=== PATIENT | female | born 1970 | race Caucasian/White ===

== ENCOUNTER → 2018-03-12 06:50 | Outpatient (CLI) | payer OTHER, SELFPAY ==
--- NOTE | 2018-03-12 06:56 | NM_ITS ---
History and Indications: Chest pain, shortness of breath, palpitations and fatigue and family history Procedure: Patient received a 0.4 mg of intravenous Lexiscan, resting heart rate was 47 bpm resting blood pressure 129/79, with Lexiscan maximum heart rate achieved was 101 bpm which is less than 85% of the maximum predicted heart rate and a blood pressure was 142/82. With Lexiscan patient complained of shortness of breath, requiring intravenous Aminophyllin to reverse symptoms. Electrocardiogram: Resting electrocardiogram showed sinus bradycardia, with Lexiscan there is less than 1.[address] segment depression with line EKG. The EKG portion of the Lexiscan Myoview is nondiagnostic. Cardiac stress and resting SPECT images: Cardiac stress and resting SPECT images were obtained using technetium 99 Myoview 31.6 mCi stress and 10.2 mCi rest ,gated SPECT further analysis of segmental wall motion and calculation of the ejection fraction also done. Cardiac stress and resting SPECT images show mild fixed defect anteriorly with normal contractility on the gated SPECT is likely secondary to soft tissue attenuation, no reversible ischemia seen. Computer derived ejection fraction 63% with no regional wall motion abnormality, right ventricle is normal size and contractility. Conclusion: 1. The EKG portion of the Lexiscan Myoview is nondiagnostic. 2. No scintigraphic evidence of reversible ischemia seen, computer derived ejection fraction is 63% with no regional wall motion abnormality, right ventricle is normal size and contractility. 3. Normal Lexiscan Myoview study.
--- NOTE | 2018-03-12 08:55 | HMH.ITSHM ---
Current Home Medications as stated by this patient Samara Sandoval or termite control representative. [bisprolol]
== END ==
PROVIDERS: PCP Family Medicine; Visit Provider Internal Medicine
DX: R00.2 Palpitations (principal); K21.9 Gastro-esophageal reflux disease without esophagitis; R07.89 Other chest pain; R42 Dizziness and giddiness
CPT/HCPCS: 78452; 93017; A9502; J2785

== ENCOUNTER → 2019-01-20 09:02 | Outpatient (CLI) | payer OTHER, SELFPAY ==
--- NOTE | 2019-01-20 09:06 | MM_ITS ---
PROCEDURE: MM DIG SCREENING MAMM BI W/CAD Patient Age:48Y CLINICAL INDICATION: screening Routine screening. No hormones. No new complaints. Noncontributory family history. 48-year-old female. Lena menopausal COMPARISON: [facility] DIGITAL MAMM-SCREEN BILATERAL from 09/13/2010 TECHNIQUE: Standard CC and MLO images were obtained. R2 CAD reviewed. FINDINGS: A moderate breast density. Breast tissue most evident central breast and extending towards upper-outer quadrant in both breasts. Slight heterogeneous character and mild asymmetry is again seen bilaterally but no significant new findings but no dominant or discrete suspicious mass. The slight decrease density of breast tissue in the interval. Areas of minimal asymmetry appear similar, stable since previous available study 2010.--specifically subtle areas towards the superior left breast are unchanged and can be followed. Bilateral follow-up 1 year adequate and recommended IMPRESSION: Stable bilateral mammogram with no new areas of significant concern. BI-RAD Category: 2 Benign Finding(s) FOLLOW-UP: 1YR 1 Year Follow-up (A letter has been sent to the patient regarding results of the study.) Dictated by: Sunil Florence MD 01/22/2019 09:34 Electronically signed by Sunil Florence MD in [place] 01/22/2019 09:34
== END ==
PROVIDERS: PCP Family Medicine; Visit Provider Family Medicine
DX: Z12.31 Encounter for screening mammogram for malignant neoplasm of breast (principal)
CPT/HCPCS: 77067

== ENCOUNTER → 2019-02-22 12:12 | Outpatient (CLI) | payer OTHER, SELFPAY ==
--- NOTE | 2019-02-22 12:18 | XR_ITS ---
PROCEDURE: XR LUMBAR SPINE MIN 4V CLINICAL INDICATION: MIDLINE LOW BACK PAIN Midline low back pain COMPARISON: No exams were available for comparison FINDINGS: There is mild multilevel degenerative disc disease from L1-S1 with slight decrease in the disc space with endplate osteophytes noted with some posterior disc calcification suspected at L1-L2-L3-L4 and L4-5. Facet arthritic changes are present he at L5-S1 with bony hypertrophy of the facets. No fracture or dislocation. No bony destructive process. The SI joints have an unremarkable appearance. IMPRESSION: Degenerate disc disease with facet arthritic change Dictated by: Umair Rodriguez MD 02/22/2019 12:59 Electronically signed by Umair Rodriguez MD in [facility] 02/22/2019 12:59
--- NOTE | 2019-02-22 12:18 | XR_ITS ---
PROCEDURE: XR FOOT RT MIN 3V CLINICAL INDICATION: RT FOOT PAIN COMPARISON: No exams were available for comparison FINDINGS: No fracture or dislocation. No lytic or blastic change. There is normal mineralization. There are mild osteoarthritic changes at the tarsal metatarsal junction. Small calcaneal spur noted. There is a small area of bony exostosis involving the mid and inferior aspect of the calcaneus. Incidental calcification noted along the lower tibia anteriorly consistent with phleboliths. IMPRESSION: Mild degenerative changes Dictated by: Umair Rodriguez MD 02/22/2019 13:03 Electronically signed by Umair Rodriguez MD in [place] 02/22/2019 13:03
== END ==
PROVIDERS: PCP Family Medicine; Visit Provider Nurse Practitioner
DX: M79.671 Pain in right foot (principal); M54.5 Low back pain
CPT/HCPCS: 72110; 73630

== ENCOUNTER → 2019-08-02 11:02 | Outpatient (CLI) | payer OTHER, SELFPAY ==
--- NOTE | 2019-08-02 11:08 | XR_ITS ---
PROCEDURE: XR CHEST 2V CLINICAL HISTORY: BRONCHITIS, PLEURITIC CHEST PAIN COMPARISON: CXR CHEST(2 VIEWS-NOT PORTABLE) from 06/27/2015 FINDINGS: The cardiomediastinal silhouette and pulmonary vascularity are within normal limits. The lungs are clear without infiltrates, suspicious nodules, or pleural effusions. No acute bony abnormalities. IMPRESSION: No acute findings. Dictated by: Curt Corcoran 08/02/2019 12:18 Electronically signed by Curt Corcoran in [place] 08/02/2019 12:18
== END ==
PROVIDERS: PCP Family Medicine; Visit Provider Family Medicine
DX: R07.81 Pleurodynia (principal); J40 Bronchitis, not specified as acute or chronic
CPT/HCPCS: 71046

== ENCOUNTER → 2020-01-07 11:03 | Outpatient (CLI) | payer OTHER, SELFPAY ==
[2020-01-07 13:07] LABS: Basophils % 0.6 % (0.1-2.0); Eosinophils # 0.1 K/mm3 (0.0-0.4); Eosinophils % 1.9 % (0.1-12.0); Hemoglobin 13.9 g/dL (12.2-16.2); Lymphocytes # 1.3 K/mm3 (0.7-4.5); Lymphocytes % 24.8 % (10-50); Mean Corpuscular HGB Conc 33.2 g/dL (31.8-35.4); Mean Corpuscular Hemoglobin 30.9 pg (27.0-31.2); Mean Corpuscular Volume 93.1 fl (81-99); Mean Platelet Volume 7.1 fl (7.4-10.4); Monocytes # 0.3 K/mm3 (0.1-1.0); Monocytes % 5.6 % (1.7-9.3); Neutrophils # 3.4 K/mm3 (1.8-7.8); Platelet Count 282 K/mm3 (142-424); Red Blood Count 4.51 M/mm3 (4.20-5.40); Red Cell Distribution Width 12.7 % (11.5-17.5); White Blood Count 5.1 K/mm3 (4.8-10.8)
[2020-01-07 16:01] LABS: Strep Scrn Group A (Rapid) Negative (Negative)
[2020-01-08 15:00] LABS: Covid-19 Nasal PCR Sendout Lex Positive
== END ==
PROVIDERS: PCP Family Medicine; Visit Provider Nurse Practitioner
DX: Z20.828 Contact with and (suspected) exposure to other viral communicable diseases (principal); U07.1 COVID-19
CPT/HCPCS: 85025; 87430; U0004

== ENCOUNTER 2020-01-21 09:31 | Emergency (ER) | payer OTHER, SELFPAY ==
[2020-01-21 09:39] VITALS: BP 130/75; PULSE 72; RESP 16; TEMP 36.6; O2SAT 98; BMI 35.5
--- NOTE | 2020-01-21 09:45 | XR_ITS ---
PROCEDURE: XR FINGER RT MIN 2V CLINICAL INDICATION: INJURY COMPARISON: No exams were available for comparison FINDINGS: There is a comminuted transverse fracture through the distal shaft and terminal tuft the middle finger. There is mild diffuse soft tissue swelling around the middle and distal phalanx. Proximal and middle phalanx appear intact. IMPRESSION: Comminuted crush type fracture at the junction of the distal shaft and terminal tuft middle finger Dictated by: Dr. Lm Davies MD 01/21/2020 10:24 Dr. Lm Davies MD in [place] 01/21/2020 10:24
--- NOTE | 2020-01-21 10:19 | HMH.EDWNDL ---
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 Qualifiers: Fracture type: open Phalanx: distal Fracture alignment: displaced Qualified Code(s): S62.632K - Displaced fracture of distal phalanx of right middle finger, subsequent encounter for fracture with nonunion Fingernail avulsion, partial Qualifiers: Encounter type: initial encounter Qualified Code(s): S61.309A - Unspecified open wound of unspecified finger with damage to nail, initial encounter Disposition: Home, Self-Care Condition on Discharge: Good Instructions: DI for Finger Fracture Prescriptions: Hydrocod/Acet 5/325 mg [Linwood 5/325mg tablet] 1 tab PO Q4HP PRN #15 tab PRN Reason: Moderate To Severe Pain Prescription Printed Amoxicillin/Potassium Clav [Amox-Clav 875-125 mg Tablet] 1 tab PO BID #20 tab Prescription Printed Referrals: Suzie Lowe MD [Primary Care Provider] - Anthony Joe MD [Referring] - - Critical Care Critical Care Time: No Attestation: On 01/21/20, the high probability of a clinically significant, sudden or life threatening deterioration of the following system(s) required my full and direct attention, intervention and personal management. The time I documented below is in addition to time spent performing reported procedures but includes the following listed in this critical care notation. Medical Decision Making - Doug Inquiry Pt receiving controlled substance: Yes Doug was queried for this patient: No Risks and benefits of using a controlled substance: were discussed with pt by me Vital Signs: 01/21/20 09:39 Temperature 98 F Temperature Source Oral Pulse Rate [Radial] 72 Respiratory Rate 16 Blood Pressure [Right Arm] 130/75 Blood Pressure Mean [Right Arm] 93 Blood Pressure Position [Right Arm] Sitting 02 Sat by Pulse Oximetry 98 Oxygen Delivery Method Room Air Orders (Tests/Meds): ED MEDICATIONS Discontinued Medications Generic Name Dose Route Start Last Admin Trade Name Freq PRN Reason Stop Dose Admin Hydrocodone Bitart/Acetaminophen 1 tab 01/21/20 09:54 01/21/20 10:14 Linwood 10/325mg Tablet PO 01/21/20 09:55 1 tab ONCE ONE Administration Cefazolin Sodium 1 gm 01/21/20 10:47 Ancef 1gm Vial IM 01/21/20 10:48 ONCE ONE Protocol Tetanus/Reduced Diphtheria/Acell Pertussis 0.5 ml 01/21/20 09:54 01/21/20 10:12 Adacel Tdap 0.5ml Syringe IM 01/21/20 09:55 0.5 ml .ONCE ONE Administration - Radiology Data #1 Image(s): Hand Image Reviewed: Yes I reviewed the patient's radiology results, Yes I have reviewed radiologist's interpretation IMPRESSION: Comminuted crush type fracture at the junction of the distal shaft and terminal tuft middle finger - Reevaluation(s) Time: 11:01 Reevaluation #1: On reevaluation, patient tolerated procedure well. I did instruct her that she needs to take her analgesics as well as antibiotics. She does need follow-up with the hand surgeon in 24 hours. We do not currently have one on staff here. However I did speak with the surgeon in [place]. Patient needs to maintain this follow-up. If not she is to return to the emergency department 24 hours for repeat examination. Patient verbalized understanding. Medical Decision Narrative: This is a 49-year-old female presented to the emergency department with injury to her right middle finger. The nail has been removed in some places. Patient will require full nail removal as well as repair. Concern for open fracture. Work-up initiated. Tetanus updated. Wound/Laceration HPI - General Chief Complaint: Wound/Laceration Stated Complaint: AO rt hand lac Time Seen by Provider: 01/21/20 09:45 Mode of Arrival: Ambulatory Limitations: No Limitations Description of Symptoms (Recalled from ER Triage Doc. by RN): TO ED PER [facility] PT SENT BY PCP'S OFFICE DUE ESTRADA RT MIDDLE FINGER INJURY PT STATES A WINDOW FELL DOWN ONTO RT AK
--- NOTE | 2020-01-21 10:38 | PC.NURSE ---
at bedside suturing.
[2020-01-21 11:28] VITALS: BP 132/74; PULSE 74; RESP 16; TEMP 36.6; O2SAT 98
--- NOTE | 2020-01-21 11:30 | PC.NURSE ---
SPLINT APPLIED TO RT MIDDLE FINGER
== END 2020-01-21 11:31 | disposition home or self-care (01) ==
PROVIDERS: Emergency Provider Emergency Medicine; PCP Family Medicine
DX: S61.312A Laceration without foreign body of right middle finger with damage to nail, initial encounter (principal); S67.192A Crushing injury of right middle finger, initial encounter; S62.632A Displaced fracture of distal phalanx of right middle finger, initial encounter for closed fracture; W20.8XXA Other cause of strike by thrown, projected or falling object, initial encounter; Y92.019 Unspecified place in single-family (private) house as the place of occurrence of the external cause; F41.9 Anxiety disorder, unspecified; Z23 Encounter for immunization; K21.9 Gastro-esophageal reflux disease without esophagitis; Z79.899 Other long term (current) drug therapy
CPT/HCPCS: 11760; 26755; 73140; 90471; 90715; 96372; 99282

== ENCOUNTER → 2021-03-14 13:30 | Outpatient (CLI) | payer OTHER, SELFPAY ==
--- NOTE | 2021-03-14 13:34 | MM_ITS ---
PROCEDURE INFORMATION: Exam: MG Bilateral Screening 3D Mammography Exam date and time: 03/14/2021 1:34 PM Age: 50 years old Clinical indication: Screening exam; No personal or family HX of malignancy TECHNIQUE: Imaging protocol: Bilateral screening tomosynthesis and 2D mammography including computer-aided detection (CAD) when performed. COMPARISON: 1. MG MM DIG SCREENING MAMM BI W/CAD 01/20/2019 9:36 AM 2. MG [facility]MSB DIGITAL MAMM-SCREEN BILATERAL 09/13/2010 2:31 PM FINDINGS: MAMMOGRAPHY: Breast composition: The breast tissue is heterogeneously dense, which may obscure small masses. Mass: None. Architectural distortion: None. Calcifications: No suspicious calcifications. Asymmetric density: None. Skin thickening: None. Axillary adenopathy: None. IMPRESSION: No mammographic evidence of malignancy. Annual screening is recommended unless otherwise clinically indicated. ASSESSMENT: BI-RADS Category 1: Negative
== END ==
PROVIDERS: PCP Family Medicine; Visit Provider Nurse Practitioner
DX: Z12.31 Encounter for screening mammogram for malignant neoplasm of breast (principal)
CPT/HCPCS: 77063; 77067

== ENCOUNTER → 2021-06-25 10:28 | Outpatient (CLI) | payer OTHER, SELFPAY ==
--- NOTE | 2021-06-25 10:32 | CT_ITS ---
FINAL REPORT TECHNIQUE: After the administration of intravenous contrast, axial images were obtained through the abdomen and pelvis by computed tomography. Oral contrast was also administered. This study was performed with technique to keep radiation doses as low as reasonably achievable, (ALARA). Individualized dose reduction techniques using automated exposure control or adjustment of the MA and/or KV according to the patient's size were employed. CLINICAL HISTORY: EPIGASTRIC PAIN // gallbladder prev removed / oral and iv contrast 75ml of Isovue 350 FINDINGS: Abdomen: The lung bases are clear. There is mild fatty infiltration of the liver. Patient is status post cholecystotomy. The spleen is unremarkable. The adrenals are normal. The pancreas is unremarkable. The kidneys enhance appropriately. The aorta is normal in caliber. There is no free fluid or adenopathy. There is no evidence of bowel obstruction. Pelvis: The appendix is normal. Uterus lies midline. The urinary bladder is unremarkable. There is no free fluid or adenopathy. IMPRESSION: Mild fatty infiltration of the liver. No acute process of the abdomen or pelvis. Reviewed, Interpreted and Dictated by Keron Wing MD Transcribed by Megan Olivares Authenticated by Keron Wing MD on 06/25/2021 01:15:23 PM [facility]
== END ==
PROVIDERS: PCP Family Medicine; Visit Provider Family Medicine
DX: R10.13 Epigastric pain (principal)
CPT/HCPCS: 74177; Q9967

== ENCOUNTER → 2022-01-01 07:27 | Outpatient (CLI) | payer OTHER, SELFPAY | PROVIDERS: PCP Family Medicine; Visit Provider Family Medicine | DX: R30.0 Dysuria (principal); B96.29 Other Escherichia coli [E. coli] as the cause of diseases classified elsewhere | CPT/HCPCS: 87086; 87088; 87186 ==

== ENCOUNTER → 2022-01-29 09:30 | Outpatient (CLI) | payer OTHER, SELFPAY | PROVIDERS: PCP Nurse Practitioner; Visit Provider Nurse Practitioner | DX: R30.0 Dysuria (principal) | CPT/HCPCS: 87086 ==

== ENCOUNTER → 2022-02-04 13:12 | Outpatient (CLI) | payer OTHER, SELFPAY | PROVIDERS: PCP Nurse Practitioner; Visit Provider Nurse Practitioner | DX: N30.01 Acute cystitis with hematuria (principal) | CPT/HCPCS: 87086 ==

== ENCOUNTER → 2022-02-04 19:03 | Outpatient (CLI) | payer OTHER, SELFPAY ==
--- NOTE | 2022-02-04 19:06 | XR_ITS ---
PROCEDURE INFORMATION: Exam: XR Thoracic Spine Exam date and time: 02/04/2022 7:11 PM Age: 51 years old Clinical indication: Other: Bilateral flank and upper abdominal pain TECHNIQUE: Imaging protocol: Radiologic exam of the thoracic spine. Views: 3 views. COMPARISON: CT ABDOMEN PELVIS W CON 06/25/2021 10:50 AM FINDINGS: Bones/joints: Degenerative spondylosis, rotoscoliosis and facet arthropathy. Soft tissues: Unremarkable. Intraperitoneal space: Prior cholecystectomy clips right upper quadrant. IMPRESSION: 1. Degenerative disc and facet disease with rotoscoliosis. 2. Prior cholecystectomy.
== END ==
PROVIDERS: PCP Nurse Practitioner; Visit Provider Nurse Practitioner
DX: R10.11 Right upper quadrant pain (principal); R10.12 Left upper quadrant pain; R10.9 Unspecified abdominal pain
CPT/HCPCS: 72072

== ENCOUNTER → 2022-02-26 10:27 | Outpatient (CLI) | payer OTHER, SELFPAY ==
[2022-02-26 18:23] LABS: Coronavirus 19, PCR Not Detected (NotDetected); Influenza A, PCR Not Detected (NotDetected); Influenza B, PCR Not Detected (NotDetected)
[2022-02-26 18:46] LABS: Basophils # 0.1 K/mm3 (0-0.2); Basophils % 1.3 % (0.1-2.0); Eosinophils # 0.2 K/mm3 (0.0-0.4); Eosinophils % 2.8 % (0.1-12.0); Hematocrit 38.9 % (37.0-47.0); Hemoglobin 12.7 g/dL (12.2-16.2); Lymphocytes # 2.2 K/mm3 (0.7-4.5); Lymphocytes % 27.4 % (10-50); Mean Corpuscular HGB Conc 32.6 g/dL (31.8-35.4); Mean Corpuscular Hemoglobin 30.8 pg (27.0-31.2); Mean Corpuscular Volume 94.7 fl (81-99); Mean Platelet Volume 7.8 fl (7.4-10.4); Monocytes # 0.3 K/mm3 (0.1-1.0); Monocytes % 4.2 % (1.7-9.3); Neutrophils # 5.2 K/mm3 (1.8-7.8); Neutrophils % 64.2 % (37.0-80.0); Platelet Count 330 K/mm3 (142-424); Red Blood Count 4.11 M/mm3 (4.20-5.40); White Blood Count 8.1 K/mm3 (4.8-10.8)
== END ==
PROVIDERS: PCP Nurse Practitioner; Visit Provider Nurse Practitioner
DX: J06.9 Acute upper respiratory infection, unspecified (principal); N30.01 Acute cystitis with hematuria
CPT/HCPCS: 85025; 87086; C9803; U0003; U0005

== ENCOUNTER 2022-03-14 09:56 | Emergency (ER) | payer SELFPAY ==
--- NOTE | 2022-03-14 10:06 | CT_ITS ---
FINAL REPORT TECHNIQUE: Axial images through the abdomen and pelvis were performed without contrast. This study was performed with techniques to keep radiation doses as low as reasonably achievable, (ALARA). Individualized dose reduction techniques using automated exposure control or adjustment of mA and/or kV according to the patient's size were employed. CLINICAL HISTORY: concern for nephrolitiasis FINDINGS: Abdomen: There is scarring in the lung bases. The liver is mildly fatty infiltrated. The gallbladder is absent. The spleen, pancreas, adrenals and kidneys are unremarkable. Pelvis: The urinary bladder is unremarkable. The appendix is normal. There is no pelvic mass or inflammation. IMPRESSION: No nephrolithiasis or hydronephrosis. Reviewed, Interpreted and Dictated by Keron Wing MD Transcribed by Conner Hernandez Authenticated and [facility]
--- NOTE | 2022-03-14 10:07 | HMH.EDGENADL ---
Discharge Plan Disposition Patient Disposition: Home, Self-Care Condition: Fair Prescriptions Prescriptions: New methocarbamol [Methocarbamol] 750 mg tablet 750 mg PO Q6 PRN (Reason: Muscle Spasm) Qty: 30 0RF No Action esomeprazole magnesium 40 mg capsule,delayed release(DR/EC) 40 mg PO DAILY Qty: 30 2RF cefdinir 300 mg capsule 300 mg PO BID Qty: 20 0RF dextromethorphan-guaifenesin 60-1,200 mg tablet extended release 12 hr 1 tab PO Q12H Qty: 60 1RF methylprednisolone 4 mg tablets,dose pack See Rx Instructions PO PER PKG DIR Qty: 21 0RF Rx Instructions: PO PER PKG DIR albuterol sulfate 90 mcg/actuation aerosol powdr breath activated 2 inh inhalation Q4-6H PRN (Reason: shortness of breath or wheezing) Qty: 1 0RF albuterol sulfate 90 mcg/actuation HFA aerosol inhaler 2 puff inhalation Q4-6H PRN (Reason: shortness of breath or wheezing) Label Comments: INHALE 2 PUFFS INTO THE LUNGS EVERY 4 TO 6 HOURS NEEDED FOR SHORTNESS OF BREATH OR WHEEZING. levofloxacin 500 mg tablet 500 mg PO Q24H Qty: 10 0RF Referrals Follow up/Referrals: Suzie Lowe MD [Primary Care Provider] - See instructions Clinical Impressions Clinical Impression: Right flank pain Instructions Patient Instructions: Thoracic Back Pain Discharge ED Provider: Conrad Esparza General Adult HPI General Chief complaint: Abdominal Pain Stated complaint: Severe lower RT back pain Time Seen by Provider: 03/14/22 10:00 History of Present Illness HPI narrative: Patient is a 51-year-old female who presents with right-sided flank pain. She says it is been going on for weeks but is gotten substantially worse over the last 24 hours. She says that it is in her right flank and wraps around into her right groin. She denies any dysuria. She has not noted any gross hematuria. She says that she has been seeing her PCP about this and says that there has been blood in bacteria in her urine but it has been persistent. She says that she has been on antibiotics and steroids but this has not been helping her symptoms. She denies any chest pain. Denies any shortness of breath. She says that sometimes the pain is worse and seems to seize up on her so they tried treating it as a musculoskeletal pain. Related Data Home Medications Medication Instructions Recorded Confirmed albuterol sulfate 90 mcg/actuation 2 puff inhalation Q4-6H PRN 03/07/22 03/07/22 aerosol inhaler shortness of breath or wheezing Previous Rx's Medication Instructions Recorded esomeprazole magnesium 40 mg 40 mg PO DAILY #30 caps 02/04/22 capsule,delayed release albuterol sulfate 90 mcg/actuation 2 inh inhalation Q4-6H PRN 02/26/22 breath activated powder inhaler shortness of breath or wheezing #1 ea cefdinir 300 mg capsule 300 mg PO BID #20 caps 02/26/22 dextromethorphan-guaifenesin ER 60 1 tab PO Q12H #60 tabs 02/26/22 mg-1,200 mg tab,extend release,12hr methylprednisolone 4 mg tablets in See Rx Instructions PO PER PKG DIR 02/26/22 a dose pack #21 tabs levofloxacin 500 mg tablet 500 mg PO Q24H #10 tabs 03/07/22 methocarbamol 750 mg tablet 750 mg PO Q6 PRN Muscle Spasm #30 03/14/22 tabs Allergies Allergy/AdvReac Type Severity Reaction Status Date / Time codeine [CODEINE] Allergy Intermediate I-ITCHING/P Verified 03/07/22 14:09 [facility] 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
[2022-03-14 10:10] LABS: Microscopic, Urine URINE MICROSCOPIC (MICROSCOPIC)
[2022-03-14 10:13] VITALS: BP 166/95; PULSE 76; RESP 20; TEMP 36.8; O2SAT 96; BMI 35.2
--- NOTE | 2022-03-14 10:15 | PC.NURSE ---
pt to ct
[2022-03-14 10:16] LABS: Appearance,Urine CLEAR (Clear); Bilirubin,Urine Negative (Negative); Blood, Urine TRACE-I (Negative); Color,Urine YELLOW (Yellow); Glucose,Urine (UA) Negative (Negative); Ketones,Urine TRACE (Negative); Leukocyte Esterase,Urine 1+ (Negative); Nitrate,Urine Negative (Negative); PH,Urine 7.5 (5.0-8.5); Protein,Urine Negative (Negative); Urobilinogen,Urine 0.2 EU/dl (0.2)
[2022-03-14 10:31] LABS: Bacteria,Urine Trace /lpf; RBC,Urine Occasional #/hpf (0-3)
[2022-03-14 10:40] LABS: Basophils # 0.1 K/mm3 (0-0.2); Basophils % 1.3 % (0.1-2.0); Eosinophils # 0.1 K/mm3 (0.0-0.4); Eosinophils % 1.4 % (0.1-12.0); Hematocrit 43.2 % (37.0-47.0); Hemoglobin 14.5 g/dL (12.2-16.2); Lymphocytes # 1.9 K/mm3 (0.7-4.5); Lymphocytes % 20.4 % (10-50); Mean Corpuscular HGB Conc 33.5 g/dL (31.8-35.4); Mean Corpuscular Hemoglobin 31.8 pg (27.0-31.2); Mean Corpuscular Volume 94.8 fl (81-99); Mean Platelet Volume 7.4 fl (7.4-10.4); Monocytes # 0.3 K/mm3 (0.1-1.0); Monocytes % 3.7 % (1.7-9.3); Neutrophils # 6.7 K/mm3 (1.8-7.8); Neutrophils % 73.3 % (37.0-80.0); Platelet Count 370 K/mm3 (142-424); Red Blood Count 4.56 M/mm3 (4.20-5.40); White Blood Count 9.2 K/mm3 (4.8-10.8)
[2022-03-14 10:48] LABS: Alanine Aminotransferase 30 U/L (12-78); Albumin Level 4.5 g/dl (3.5-5.0); Albumin/Globulin Ratio 1.7 (1.1-1.8); Alkaline Phosphatase 148 U/L (38-126); Anion Gap 14.9 mEq/L (5-15); Aspartate Amino Transferase 29 U/L (14-36); Blood Urea Nitrogen 16 mg/dl (7-17); Calcium 9.9 mg/dl (8.4-10.2); Carbon Dioxide 27 mmol/L (22.0-30.0); Chloride 102 mmol/L (98-107); Creatinine Clearance Estimated 171 mL/min (50-200); Estimated Glomerular Filt Rate 105 ml/min (>60); GFR (African American) 127 ML/MIN (>60); Globulin 2.7 g/dL (1.3-3.2); Glucose 110 mg/dl (74-100); Lipase 106 U/L (23-300); Potassium 3.9 mmoL/L (3.5-5.1); Sodium 140 mmol/L (136-145); Total Protein,Serum 7.2 g/dl (6.3-8.2)
[2022-03-14 12:00] VITALS: BP 106/70; PULSE 65; RESP 20; O2SAT 97
--- NOTE | 2022-03-14 12:29 | PC.NURSE ---
calling rad for update on scan report
[2022-03-14 12:30] VITALS: BP 111/65
[2022-03-14 13:00] VITALS: BP 107/68; PULSE 75; RESP 20; O2SAT 97
--- NOTE | 2022-03-14 13:15 | PC.NURSE ---
pt reports pain. MD notified. new orders placed by
--- NOTE | 2022-03-14 13:19 | PC.NURSE ---
after reviewing side effects with pt, pt does not want morphine. notified.
[2022-03-14 15:10] VITALS: BP 110/70; PULSE 72; RESP 20; TEMP 36.8; O2SAT 98
== END 2022-03-14 15:11 | disposition home or self-care (01) ==
PROVIDERS: Emergency Provider Student in an Organized Health Care Education/Training Program; PCP Family Medicine
DX: R10.31 Right lower quadrant pain (principal); R07.89 Other chest pain; R11.0 Nausea; K21.9 Gastro-esophageal reflux disease without esophagitis; R00.2 Palpitations; M54.9 Dorsalgia, unspecified; R06.02 Shortness of breath; M62.838 Other muscle spasm; Z79.51 Long term (current) use of inhaled steroids; Z79.52 Long term (current) use of systemic steroids; Z79.899 Other long term (current) drug therapy; Z88.5 Allergy status to narcotic agent; Z82.49 Family history of ischemic heart disease and other diseases of the circulatory system; Z83.3 Family history of diabetes mellitus; Z83.49 Family history of other endocrine, nutritional and metabolic diseases
CPT/HCPCS: 74176; 80053; 81001; 83690; 85025; 87086; 96361; 96374; 96375; 99285; J2405

== ENCOUNTER 2024-01-24 13:31 | Emergency (ER) | payer OTHER, SELFPAY ==
[2024-01-24 13:33] VITALS: BP 156/97; PULSE 85; RESP 20; TEMP 36.9; O2SAT 95; BMI 36.3
[2024-01-24 13:40] VITALS: BP 156/97; PULSE 88; O2SAT 97
[2024-01-24 14:01] VITALS: BP 124/76; PULSE 71
--- NOTE | 2024-01-24 14:17 | XR_ITS ---
PROCEDURE INFORMATION: Exam: XR Left Shoulder Exam date and time: 01/24/2024 2:44 PM Age: 53 years old Clinical indication: Injury or trauma; Fall; Blunt trauma (contusions or hematomas); Shoulder; Left TECHNIQUE: Imaging protocol: Radiologic exam of the left shoulder. Views: 2 or more views. COMPARISON: CR XR CHEST 2V 08/02/2019 11:31 AM FINDINGS: Bones/joints: No fractures or bone lesions. No dislocations. Soft tissues: No soft tissue abnormalities or radiopaque foreign bodies. No soft tissue gas. IMPRESSION: No acute findings in the left shoulder.
--- NOTE | 2024-01-24 14:17 | CT_ITS ---
PROCEDURE INFORMATION: Exam: CT Pelvis Without Contrast, Skeleton Exam date and time: 01/24/2024 2:51 PM Age: 53 years old Clinical indication: Injury or trauma; Additional info: Fall TECHNIQUE: Imaging protocol: Computed tomography of the pelvis without contrast. Exam focused on the skeleton. Radiation optimization: All CT scans at this facility use at least one of these dose optimization techniques: automated exposure control; mA and/or kV adjustment per patient size (includes targeted exams where dose is matched to clinical indication); or iterative reconstruction. COMPARISON: CT ABDOMEN PELVIS WO CON 03/14/2022 11:10 AM FINDINGS: Reproductive: Anteverted uterus is appropriate in size and shape and has no myometrial masses. Bones/joints: Acute nondisplaced fracture in the anterior left acetabular rim. No left femur fracture. Left hip joint space is well preserved. No other pelvis or sacrum fractures. Soft tissues: No masses or fluid collections. Lymph nodes: No pelvis soft tissue masses, lymphadenopathy, or free fluid. IMPRESSION: Acute, nondisplaced fracture of the anterolateral left acetabular rim. No left femur fracture. No left hip joint effusion. No other acute findings in the pelvis.
--- NOTE | 2024-01-24 14:17 | CT_ITS ---
PROCEDURE INFORMATION: Exam: CT Cervical Spine Without Contrast Exam date and time: 01/24/2024 2:48 PM Age: 53 years old Clinical indication: Injury or trauma; Fall; Blunt trauma TECHNIQUE: Imaging protocol: Computed tomography of the cervical spine without contrast. Radiation optimization: All CT scans at this facility use at least one of these dose optimization techniques: automated exposure control; mA and/or kV adjustment per patient size (includes targeted exams where dose is matched to clinical indication); or iterative reconstruction. COMPARISON: CR Shoulder L 01/24/2024 2:44 PM FINDINGS: Bones: No acute fracture. Normal alignment. No significant disc bulge or herniation. No severe spinal canal stenosis. No significant neural foraminal narrowing. Lungs: Lung apices are normal. Soft tissues: No paraspinal or prevertebral soft tissue masses. IMPRESSION: No acute findings in the cervical spine.
[2024-01-24 14:30] VITALS: BP 134/73; PULSE 68
[2024-01-24] MEDS: ONDANSETRON 4MG/2ML VIAL 4 MG IV (14:38)
[2024-01-24] MEDS: METHOCARBAMOL 500MG TABLET 500 MG PO (14:39)
[2024-01-24] MEDS: MORPHINE 2MG/ML SYRINGE 2 MG IV (14:39)
--- NOTE | 2024-01-24 14:52 | PC.NURSE ---
DR KENNEY AT BEDSIDE TO UPDATE PT AND FAMILY
--- NOTE | 2024-01-24 14:55 | ED_ITS ---
<Statement entered by Nayeli Quick DO - 01/24/24 18:12> I was consulted by the CHALO, and we discussed the complexity of the problems being addressed. I approved the treatment and management plan for this patient's care in the emergency department, thus performing a substantive portion of the medical decision making. Nayeli Quick DO Discharge Plan Disposition Patient Disposition: Home, Self-Care Condition: Fair Prescriptions Prescriptions: New ketorolac 10 mg tablet 10 mg PO Q8H PRN (Reason: pain) 5 Days Qty: 15 0RF tramadol-acetaminophen 37.5-325 mg tablet 1 tab PO BID PRN (Reason: pain) Qty: 10 0RF Continued methocarbamol 750 mg tablet 750 mg PO Q6 PRN (Reason: Muscle Spasm) Qty: 30 0RF No Action esomeprazole magnesium 40 mg capsule,delayed release(DR/EC) 40 mg PO DAILY Qty: 30 2RF cefdinir 300 mg capsule 300 mg PO BID Qty: 20 0RF dextromethorphan-guaifenesin 60-1,200 mg tablet extended release 12 hr 1 tab PO Q12H Qty: 60 1RF methylprednisolone 4 mg tablets,dose pack See Rx Instructions PO PER PKG DIR Qty: 21 0RF Rx Instructions: PO PER PKG DIR albuterol sulfate 90 mcg/actuation aerosol powdr breath activated 2 inh inhalation Q4-6H PRN (Reason: shortness of breath or wheezing) Qty: 1 0RF albuterol sulfate 90 mcg/actuation HFA aerosol inhaler 2 puff inhalation Q4-6H PRN (Reason: shortness of breath or wheezing) Patient Comments: INHALE 2 PUFFS INTO THE LUNGS EVERY 4 TO 6 HOURS NEEDED FOR SHORTNESS OF BREATH OR WHEEZING. levofloxacin 500 mg tablet 500 mg PO Q24H Qty: 10 0RF Referrals Follow up/Referrals: Suzie Lowe MD [Primary Care Provider] - See instructions Saurav Laughlin DO [Staff Physician] - See instructions Activity Restrictions/Add. Instructions Additional Instructions/Restrictions: Parent is tolerated. Take meds as directed. Please follow-up with Dr. Laughlin with Ortho this next week. If any worsening problems or concerns please return to the ED. Clinical Impressions Clinical Impression: Fall, Acute pain of left shoulder, Avulsion fracture of left hip Print Language Print Language: Vincentian Discharge ED Provider: Nayeli Quick General Adult HPI General Chief complaint: Fall Stated complaint: AO- Fall 11am 01/23, pain L shoulder and leg Time Seen by Provider: 01/24/24 14:15 Mode of Arrival: Ambulatory Source of Information: Patient and Spouse Limitations: No Limitations Description of Symptoms (Recalled from ER Triage Doc. by RN): pt was standing on 3 step ladder and fell against wall and then lowered her to ground, pt denies any head, neck or back pain and complains only of left shoulder and left hip/thigh pain upon triage. pt is able to move all fingers and toes and pms is intact x4. Related Data Home Medications ?Medication ?Instructions ?Recorded ?Confirmed albuterol sulfate 90 mcg/actuation 2 puff inhalation Q4-6H PRN 03/07/22 03/07/22 aerosol inhaler shortness of breath or wheezing Previous Rx's ?Medication ?Instructions ?Recorded esomeprazole magnesium 40 mg 40 mg PO DAILY #30 caps 02/04/22 capsule,delayed release albuterol sulfate 90 mcg/actuation 2 inh inhalation Q4-6H PRN 02/26/22 breath activated powder inhaler shortness of breath or wheezing #1 ea cefdinir 300 mg capsule 300 mg PO BID #20 caps 02/26/22 dextromethorphan-guaifenesin ER 60 1 tab PO Q12H #60 tabs 02/26/22 mg-1,200 mg tab,extend release,12hr methylprednisolone 4 mg tablets in See Rx Instructions PO PER PKG DIR 02/26/22 a dose pack #21 tabs levofloxacin 500 mg tablet 500 mg PO Q24H #10 tabs 03/07/22 methocarbamol 750 mg tablet 750 mg PO Q6 PRN Muscle Spasm #30 03/14/22 tabs ketorolac 10 mg tablet 10 mg PO Q8H PRN pain 5 days #15 01/24/24 tabs tramadol 37.5 mg-acetaminophen 325 1 tab PO BID PRN pain #10 tabs 01/24/24 mg tablet Allergies Allergy/AdvReac Type Severity Reaction Status Date / Time codeine [CODEINE] Allergy Intermediate I-ITCHING/P Verified 03/07/22 14:09 AIN PFS PFS Disclaimer: The information contained in this section may have been updated after the patient was seen, as this information can be updated by other users. 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 Hypertension Social History Smoking Status: Never smoker alcohol intake: never current occupational status: other Travel in the last 8 weeks: None household members: other housing: house ROS Obtained: Yes Systems reviewed as appropriate & no additional complaints except as documented Constitutional Constitutional: Reports system reviewed and no additional complaints, except as documented and Reports as per HPI Physical Exam General General appearance: alert and in distress (Secondary to her fall including her left shoulder and left hip) Head Head exam: atraumatic and normocephalic Eye Eye exam: Present normal appearance, PERRL and EOMI ENT ENT exam: Present normal exam, normal oropharynx and mucous membranes moist Neck Neck exam: Present normal inspection, full ROM, trachea midline and tenderness ( On C-spine) Chest Chest inspection: Present normal inspection Respiratory Respiratory exam: Present normal lung sounds bilaterally Cardiovascular Cardiovascular exam: Present regular rate, normal rhythm, normal heart sounds, +S1 and +S2 Abdominal Exam Abdominal exam: Present soft and normal bowel sounds Extremities Exam Extremities exam: Present normal inspection, full ROM and normal capillary refill Back Exam Back exam: Present normal inspection Neurological Exam Neurological exam: Present alert and oriented X3 Skin Skin exam: Present warm, dry and intact Medical Decision Making Medical Records Screening: Per USPSTF and CDC recommendations, given the prevalence of disease in our region, it is our hospital?s policy to screen for HIV and viral Hepatitis for all patients aged 18 and over and those with ongoing risk factors. Doug Inquiry Pt receiving controlled substance: No Vital Signs: 01/24/24 13:33 01/24/24 13:40 01/24/24 14:01 Temperature 98.5 F Temperature Source Oral Pulse Rate 88 71 Pulse Rate [Right Radial] 85 Respiratory Rate 20 Blood Pressure 156/97 H 124/76 Blood Pressure [Right Arm] 156/97 H Blood Pressure Mean 108 92 Blood Pressure Mean [Right Arm] 116 02 Sat by Pulse Oximetry 95 97 Oxygen Delivery Method Room Air Room Air Room Air 01/24/24 14:30 01/24/24 16:24 Temperature 98.2 F Temperature Source Oral Pulse Rate 68 77 Pulse Rate [Right Radial] Respiratory Rate 18 Blood Pressure 134/73 135/76 Blood Pressure [Right Arm] Blood Pressure Mean 90 Blood Pressure Mean [Right Arm] 02 Sat by Pulse Oximetry Oxygen Delivery Method Room Air Room Air Orders (Tests/Meds): ED MEDICATIONS Discontinued Medications Generic Name Dose Route Start Last Admin Trade Name Freq PRN Reason Stop Dose Admin Ketorolac Tromethamine 15 mg 01/24/24 15:29 01/24/24 16:05 Ketorolac 30mg/Ml Vial IV 01/24/24 15:30 15 mg ONCE ONE Administration Methocarbamol 500 mg 01/24/24 21:00 Methocarbamol 500mg Tablet PO 02/23/24 20:59 BID RAMON Methocarbamol 500 mg 01/24/24 14:37 01/24/24 14:39 Methocarbamol 500mg Tablet PO 01/24/24 14:38 500 mg ONCE ONE Administration Morphine Sulfate 2 mg 01/24/24 14:17 01/24/24 14:39 Morphine 2mg/Ml Syringe IV 01/24/24 14:18 2 mg ONCE ONE Administration Ondansetron HCl 4 mg 01/24/24 14:17 01/24/24 14:38 Ondansetron 4mg/2ml Vial IV 01/24/24 14:18 4 mg ONCE ONE Administration Tramadol/Acetaminophen 2 each 01/24/24 15:29 01/24/24 16:05 Tramadol/Apap 37.5/325mg Tablet PO 01/24/24 15:30 2 each ONCE ONE Administration ORDERS Category Date Time Status CT cervical spine wo con Stat Cat Scan 01/24/24 14:[address] pelvis wo con Stat Cat Scan 01/24/24 14:17 Completed Shoulder XR left minimum 2 views [XR shoulder LT min 2V Exams 01/24/24 14:17 Completed ] Stat Medical Decision Narrative: Insert review patient is a 53-year-old female presenting to the emergency depar tment for evaluation of left hip and left shoulder pain after a fall. Patient is hemodynamically stable and nontoxic-appearing upon arrival, afebrile]. Differential diagnosis includes fracture versus dislocation of left Shoulder, and fracture versus dislocation versus sprain of left hip. Patient is [hemodynamically stable and nontoxic-appearing upon arrival, afebrile]. Workup will be conducted with [hematologic labs, specific imaging, provocative tests]. Initial inventions include morphine, Zofran and and methocarbamol for discomfort. Imaging informally interpreted by me and remarkable for negative left shoulder. [Formal imaging read remarkable for nondisplaced acetabular fracture. I had a conversation with Dr. Laughlin about the CT results and he believes that this fracture is more of an osteophyte breaking off and she can weight-bear as tolerated. Patient will follow-up with Dr. Laughlin outpatient. Upon repeat evaluation patient's pain is increasing so I am going to offer pain meds orally and IV. Critical Care Critical Care Time Critical Care Time: No
--- NOTE | 2024-01-24 14:58 | PC.NURSE ---
PT RETURNED FROM RADIOLOGY
[2024-01-24] MEDS: KETOROLAC 30MG/ML VIAL 15 MG IV (16:05)
[2024-01-24] MEDS: APAP PO (16:05)
[2024-01-24] MEDS: TRAMADOL PO (16:05)
[2024-01-24 16:24] VITALS: BP 135/76; PULSE 77; RESP 18; TEMP 36.8; O2SAT 97
== END 2024-01-24 16:23 | disposition home or self-care (01) ==
PROVIDERS: Emergency Provider Emergency Medicine; PCP Family Medicine
DX: S32.415A Nondisplaced fracture of anterior wall of left acetabulum, initial encounter for closed fracture (principal); M25.512 Pain in left shoulder; K21.9 Gastro-esophageal reflux disease without esophagitis; W11.XXXA Fall on and from ladder, initial encounter; Y92.9 Unspecified place or not applicable
CPT/HCPCS: 72125; 72192; 73030; 96374; 96375; 99285; J1885; J2270; J2405